=== PATIENT | female | born 1990 | race Caucasian/White ===

== ENCOUNTER 2023-03-07 18:40 | Emergency (ER) | payer MEDICAID ==
[~2023-03-07] VITALS: Ht 157.5 cm; Wt 74.8 kg
[2023-03-07 18:47] VITALS: BP 188/108
--- NOTE | 2023-03-07 19:20 | NUR ---
DR NOVA AT BEDSIDE
[2023-03-07 19:35] LABS: BASOPHILS % (AUTO) 0.2 % (0.0-2.0); EOSINOPHILS # (AUTO) 0.1 K/uL (0-0.4); EOSINOPHILS % (AUTO) 0.7 % (0.0-4.0); HEMATOCRIT 27.1 % (36-48); HEMOGLOBIN 8.5 g/dL (12.0-16.0); LYMPHOCYTES # (AUTO) 2.9 K/uL (2.5-16.5); LYMPHOCYTES % (AUTO) 29.9 % (20.5-51.1); MEAN CORPUSCULAR HEMOGLOBIN 19 pg (27-31); MEAN CORPUSCULAR HGB CONC 31 g/dL (33-37); MEAN CORPUSCULAR VOLUME 60.2 fL (80-94); MONOCYTES # (AUTO) 0.5 K/uL (0.8-1.0); MONOCYTES % (AUTO) 4.8 % (1.7-9.3); NEUTROPHILS # (AUTO) 6.3 K/uL (1.8-7.7); NEUTROPHILS % (AUTO) 64.4 % (42.2-75.2); PLATELET COUNT (AUTO) 314 K/uL (140-450); WHITE BLOOD COUNT (AUTO) 9.8 K/uL (4.8-10.8)
[2023-03-07 19:39] LABS: BILIRUBIN,URINE 1+ (NEGATIVE); BLOOD, URINE 3+ (NEGATIVE); LEUKOCYTE ESTERASE ,URINE 3+ (NEGATIVE); NITRITE, URINE POSITIVE (NEGATIVE); PH,URINE 8.5 (5.0-9.0); UGLUCOSE TRACE (NEGATIVE)
[2023-03-07 19:41] LABS: APPEARANCE,URINE CLOUDY (CLEAR)
[2023-03-07 19:42] LABS: COLOR,URINE BLOODY (YELLOW)
--- NOTE | 2023-03-07 19:45 | NUR ---
32YR OLD FEMALE BIB SELF C/O VAG BLEEDING AND ABD PAIN. PAIN STARTED TODAY. [address]10 [address] RADIATES TO RLQ. PT STATES VAG BLEEDING HAS GOTTEN WORSE TODAY WITH CLOTS. NEG PREG . DENIES CP OR SOB. PT IS A&OX4. ON BEDSIDE RN DERMATOLOGY. PT IS GUAMANIAN SPEAKING ONLY. AT BEDSIDE NKDA HTN
[2023-03-07 19:51] LABS: ALBUMIN 4.2 g/dL (3.4-5.0); ANION GAP 12.3 (8-16); CARBON DIOXIDE 28.1 mmol/L (21-32); CREATININE 0.7 mg/dL (0.6-1.3); POTASSIUM 3.4 mmol/L (3.5-5.1); TOTAL BILIRUBIN 0.2 mg/dL (0.0-1.0)
[2023-03-07] MEDS ORDERED: MORPHINE SULFATE 4 MG/ML SYR IM ONE (20:35)
[2023-03-07] MEDS ORDERED: ACET-10509 PO (21:16)
[2023-03-07] MEDS ORDERED: CEPH-588 PO (21:20)
[2023-03-07 21:28] VITALS: BP 145/83
--- NOTE | 2023-03-07 21:28 | NUR ---
Patient discharged with v/s stable. Written and verbal after care instructions given and explained. Patient verbalized understanding. Ambulatory with steady gait. All questions addressed prior to discharge. Advised to follow up with PMD.
== END 2023-03-07 21:28 | disposition home or self-care (01) ==
LOC: MED 18:40
DX: N93.8 Other specified abnormal uterine and vaginal bleeding (principal); N39.0 Urinary tract infection, site not specified; Z79.899 Other long term (current) drug therapy
CPT/HCPCS: 36415; 76856; 80053; 81003; 81025; 83690; 85025; 87086; 93976; 96372; 99285; J2270; Q0092